=== PATIENT | female | born 1990 | race Caucasian/White ===

== ENCOUNTER → 2016-12-07 | Outpatient (REF) | payer OTHER ==
[~2016-12-07] MED LIST: ACET50TA PO; IBUP80TA PO; PRENTAB74 PO; TYLE167L PO
== END ==
LOC: M SFHCLERA 18:01
PROVIDERS: ATTEND Nurse Practitioner Family
DX: J35.8 Other chronic diseases of tonsils and adenoids (principal)